=== PATIENT | female | born 1960 | race American Indian/Alaskan Native ===

== ENCOUNTER 2017-01-14 14:56 | Day surgery (SDC) | payer OTHER ==
[2017-01-14] MEDS ORDERED: REGLAN IV ONE (15:11)
[2017-01-14] MEDS ORDERED: DepaCON 500 MG in NACL 0.9% 100 ML IV ONE (15:11)
[2017-01-14 16:58] VITALS: BP 117/76
== END 2017-01-14 17:10 | disposition home or self-care (01) ==
LOC: OPU 14:56 → EDSTATUS 14:58 → OPU 17:10
PROVIDERS: ATTEND Specialist
DX: G43.909 Migraine, unspecified, not intractable, without status migrainosus (principal); Z72.89 Other problems related to lifestyle; Z79.899 Other long term (current) drug therapy
CPT/HCPCS: 96365; 96375; J2765; 96374